=== PATIENT | male | born 1950 | race Caucasian/White ===

== ENCOUNTER 2017-06-21 19:20 | Emergency (ER) | payer BC, OTHER ==
[2017-06-21 19:30] VITALS: BP 155/93; PULSE 94; TEMP 98.1; BMI 30.1
[2017-06-21] MEDS ORDERED: DIPHTH,PERTUSS(ACELL),TET 0.5 ML DISP.SYRIN IM ONE (19:54)
--- NOTE | 2017-06-21 19:54 | PDOC ---
History of Present Illness - General History Source: Patient Exam Limitations: No Limitations - History of Present Illness Initial Comments: 06/21/17 21:05 Patient is a 66 year old male with a significant past medical history of HTN who presents to the ED s/p right first digit laceration that occurred at 2.5 hours ago. Patient reports grabbing glass from shelf today when the glass fell and cut his finger while falling to the floor. Patient reports he does not remember when his last tetanus shot was received. He reports taken baby aspirin on a daily bases. Patient reports he is right handed. Denies fever, chills. Denies chest pain, SOB. Denies nausea, vomiting. Denies any loss of consciousness, headache. Denies any other symptoms. Allergies: None Social history: No smoking. No alcohol. No illicit drugs. Surgical history: None PMD: None <Antonio Canas - Last Filed: 06/21/17 21:05> <Jessenia Zheng - Last Filed: 06/22/17 05:14> - General Chief Complaint: Injury Stated Complaint: RT THUMB LACERATION Time Seen by Provider: 06/21/17 19:33 Past History <Antonio Canas - Last Filed: 06/21/17 21:05> - Past Medical History HTN: Yes - Surgical History Cardiac Surgery: Yes ([facility]) - Suicide/Smoking/Psychosocial Hx Smoking History: Never smoked Hx Alcohol Use: (occasional) <Jessenia Zheng - Last Filed: 06/22/17 05:14> - Past Medical History Allergies/Adverse Reactions: Allergies Allergy/AdvReac Type Severity Reaction Status Date / Time No Known Allergies Allergy Verified 06/21/17 19:24 Home Medications: Ambulatory Orders Blood Pressure Pill 1 tab PO DAILY 06/21/17 Review of Systems - Review of Systems Able to Perform ROS?: Yes Comments:: 06/21/17 21:05 GENERAL/CONSTITUTIONAL: No fever or chills. No weakness. HEAD, EYES, EARS, NOSE AND THROAT: No change in vision. No ear pain or discharge. No sore throat. GASTROINTESTINAL: No nausea, vomiting, diarrhea or constipation. GENITOURINARY: No dysuria, frequency, or change in urination. CARDIOVASCULAR: No chest pain or shortness of breath. RESPIRATORY: No cough, wheezing, or hemoptysis. MUSCULOSKELETAL: + Right thumb laceration No joint or muscle swelling or pain. No neck or back pain. SKIN: No rash NEUROLOGIC: No headache, vertigo, loss of consciousness, or change in strength/ sensation. ENDOCRINE: No increased thirst. No abnormal weight change. HEMATOLOGIC/LYMPHATIC: No anemia, easy bleeding, or history of blood clots. ALLERGIC/IMMUNOLOGIC: No hives or skin allergy. All Other Systems: Reviewed and Negative <Antonio Canas - Last Filed: 06/21/17 21:05> *Physical Exam - Vital Signs Last Vital Signs Temp Pulse Resp BP Pulse Ox 98.1 F 94 H 18 155/93 98 06/21/17 19:20 06/21/17 19:20 06/21/17 19:20 06/21/17 19:20 06/21/17 19:20 - Physical Exam Comments: 06/21/17 21:05 GENERAL: Awake, alert, and fully oriented, in no acute distress HEAD: No signs of trauma EYES: PERRLA, EOMI, sclera anicteric, conjunctiva clear ENT: Auricles normal inspection, hearing grossly normal, nares patent, oropharynx clear without exudates. Moist mucosa NECK: Normal ROM, supple, no lymphadenopathy, JVD, or masses LUNGS: Breath sounds equal, clear to auscultation bilaterally. No wheezes, and no crackles HEART: Regular rate and rhythm, normal S1 and S2, no murmurs, rubs or gallops ABDOMEN: Soft, nontender, normoactive bowel sounds. No guarding, no rebound. No masses EXTREMITIES: +1.5 cm full thickness linear laceration of the right thumb palmar aspect of the IP joint. Lumber Chain Offbearer strength normal. Neurovascular intact. Right handed. Normal range of motion, no edema. No clubbing or cyanosis. No cords, erythema, or tenderness NEUROLOGICAL: Cranial nerves II through XII grossly intact. Normal speech, normal gait SKIN: Warm, Dry, normal turgor, no rashes or lesions noted. <Antonio Canas - Last Filed: 06/21/17 21:05> - Vital Signs Last Vital Signs Temp Pulse Resp BP Pulse Ox 98.1 F 94 H 18 155/93 98 06/21/17 19:20 06/21/17 19:20 06/21/17 19:20 06/21/17 19:20 06/21/17 19:20 <Jessenia Zheng - Last Filed: 06/22/17 05:14> Procedures - Laceration/Wound Repair Right 1st digit Wound Length: to 2.5 cm Wound Explored: clean Wound's Depth, Shape: linear Irrigated w/ Saline: Yes Betadine Prep: No (Hibiclens/ethanol) Anesthesia: 1% Lidocaine Amount of Anesthetic (ccs): 2 Wound Repaired With: Sutures Suture Size/Type: 5:0, nylon Number of Sutures: 3 Layer Closure: No Sterile Dressing Applied: Yes Splint Applied: No Progress: Wound cleansed with Hibiclens/ethanol and sterilely draped. 2 mL of 1% lidocaine infiltrated into the wound for local anesthesia. Wound irrigated with 40 mL of sterile normal saline. No evidence of tendon or vascular injury. No evidence of foreign body Wound edges closely apposed and 3 interrupted sutures of 5-0 nylon used for wound closure. Bacitracin applied to the wound. Patient tolerated procedure well. <Jessenia Zheng - Last Filed: 06/22/17 05:14> ED Treatment Course - Medications Given in the ED: ED Medications Discontinued Medications Generic Name Dose Route Start Last Admin Trade Name Freq PRN Reason Stop Dose Admin Diphtheria/Tetanus/Acell Pertussis 0.5 ml 06/21/17 19:54 06/21/17 20:03 Boostrix - IM 06/21/17 19:55 0.5 ml .ONCE ONE Administration <Antonio Canas - Last Filed: 06/21/17 21:05> *DC/Admit/Observation/Transfer - Attestations Scribe Attestion: 06/21/17 21:06 Documentation prepared by Antonio Canas, acting as biomedical engineering technician for Jessenia Zheng MD/DO. <Antonio Canas - Last Filed: 06/21/17 21:05> <Jessenia Zheng - Last Filed: 06/22/17 05:14> Diagnosis at time of Disposition: Laceration of right thumb Qualifiers: Encounter type: initial encounter Damage to nail status: without damage Foreign body presence: without foreign body Qualified Code(s): S61.011A - Laceration without foreign body of right thumb without damage to nail, initial encounter - Discharge Dispostion Disposition: HOME Condition at time of disposition: Stable - Patient Instructions Printed Discharge Instructions: How to Care for a Laceration After Repair Additional Instructions: Keep original dressing in place, as dry as possible, for 2 days Keep right hand elevated overnight tonight After original dressing removed, can use Band-Aid during day/open at night Return or see your doctor if area becomes more red/painful/swollen Have sutures removed in one week
== END 2017-06-21 21:25 | disposition home or self-care (01) ==
LOC: FER 19:20
PROC: 0HQFXZZ Repair Right Hand Skin, External Approach (ICD-10-PCS; principal; 2017-06-21)
PROC: 3E0234Z Introduction of Serum, Toxoid and Vaccine into Muscle, Percutaneous Approach (ICD-10-PCS; 2017-06-21)
DX: S61.011A Laceration without foreign body of right thumb without damage to nail, initial encounter (principal); W25.XXXA Contact with sharp glass, initial encounter; Y93.89 Activity, other specified; Y92.9 Unspecified place or not applicable; I10 Essential (primary) hypertension; Z95.1 Presence of aortocoronary bypass graft
CPT/HCPCS: 90715; 99283-25

== ENCOUNTER 2021-06-10 14:49 | Inpatient (IN) | payer OTHER, BC ==
[2021-06-10] MEDS ORDERED: SODIUM CHLORIDE 0.9% 500 ML INFUS.BAG IV ONE (16:33)
[2021-06-10 17:38] LABS: BASO % 1.2 % (0-2.0); EOS % 1.4 % (0-4.5); HEMOGLOBIN 10.3 GM/dL (11.7-16.9); LYMPH % 9.1 % (8-40); MCHC 33.3 g/dl (32.0-35.9); MEAN CELL VOLUME 87.3 fl (80-96); MEAN PLT VOLUME 7.8 fl (7.5-11.1); MONO % 10.1 % (3.8-10.2); NEUT % 78.2 % (42.8-82.8); PLATELET COUNT 179 10^3/uL (134-434); RBC 3.55 M/mm3 (4.00-5.60); RDW 15.2 % (11.9-15.9); WHITE BLOOD COUNT 6.5 K/mm3 (4.0-10.0)
[2021-06-10 17:44] LABS: INR 1.48 (0.83-1.09); PROTHROMBIN TIME (PATIENT) 17.7 SEC (9.7-13.0)
[2021-06-10 18:03] LABS: CHLORIDE 108 mmol/L (98-107); SODIUM 138 mmol/L (136-145)
[2021-06-10 18:05] LABS: CALCIUM 8.3 mg/dL (8.5-10.1)
[2021-06-10 18:06] LABS: ALBUMIN 3.4 g/dl (3.4-5.0); ANION GAP 11 MMOL/L (8-16); BLOOD UREA NITROGEN 33.4 mg/dL (7-18); CO2 19 mmol/L (21-32); GLUCOSE,RANDOM 149 mg/dL (74-106)
[2021-06-10 18:09] LABS: CREATININE 1.8 mg/dL (0.55-1.3); SGOT/AST 32 U/L (15-37); SGPT/ALT 41 U/L (13-61)
[2021-06-10] MEDS ORDERED: CEFTRIAXONE 1,000 MG in DEXTROSE 5%-WATER - 50 ML IVPB ONE (18:10)
[2021-06-10 18:11] LABS: BILIRUBIN,TOTAL 0.9 mg/dL (0.2-1); TOT PROT 6.5 g/dl (6.4-8.2)
[2021-06-10 18:12] LABS: ALK PHOS 219 U/L (45-117)
[2021-06-10] MEDS ORDERED: CEFTRIAXONE 1 GM/50 ML BAG ONE (18:22)
[2021-06-10] MEDS ORDERED: DIPHTH,PERTUSS(ACELL),TET 0.5 ML DISP.SYRIN IM ONE ×2 (18:42→19:33)
[2021-06-10] MEDS ORDERED: FUROSEMIDE 40 MG/4 ML INJECTABLE VIAL IVPUSH ONE (23:32)
[2021-06-10] MEDS ORDERED: FUROSEMIDE 40 MG/4 ML INJECTABLE VIAL ONE (23:54)
[2021-06-11 03:48] VITALS: BMI 37.0
[2021-06-11] MEDS: INSULIN SLIDING SCALE (NOVOLOG) 1 VIAL SQ SCH ×4 (06:21→21:26)
[2021-06-11 07:10] LABS: EOS % 1.5 % (0-4.5); HEMATOCRIT 29.5 % (35.4-49); HEMOGLOBIN 10.1 GM/dL (11.7-16.9); LYMPH % 16.5 % (8-40); MCHC 34.1 g/dl (32.0-35.9); MEAN CELL VOLUME 87.9 fl (80-96); MEAN PLT VOLUME 8.4 fl (7.5-11.1); MONO % 13.4 % (3.8-10.2); NEUT % 67.6 % (42.8-82.8); PLATELET COUNT 177 10^3/uL (134-434); RBC 3.35 M/mm3 (4.00-5.60); WHITE BLOOD COUNT 5.4 K/mm3 (4.0-10.0)
[2021-06-11 07:33] LABS: CHLORIDE 109 mmol/L (98-107); SODIUM 140 mmol/L (136-145)
[2021-06-11 07:38] LABS: ALBUMIN 3.3 g/dl (3.4-5.0); ANION GAP 6 MMOL/L (8-16); BLOOD UREA NITROGEN 34.8 mg/dL (7-18); CALCIUM 8.4 mg/dL (8.5-10.1); CO2 25 mmol/L (21-32); GLUCOSE,RANDOM 130 mg/dL (74-106)
[2021-06-11 07:39] LABS: MAGNESIUM 1.9 mg/dL (1.8-2.4)
[2021-06-11 07:41] LABS: CREATININE 1.8 mg/dL (0.55-1.3); PHOSPHOROUS 4.9 mg/dL (2.5-4.9); SGOT/AST 26 U/L (15-37); SGPT/ALT 36 U/L (13-61)
[2021-06-11 07:43] LABS: BILIRUBIN,TOTAL 0.7 mg/dL (0.2-1); TOT PROT 6.4 g/dl (6.4-8.2)
[2021-06-11 07:44] LABS: ALK PHOS 209 U/L (45-117); IRON SERUM 27 ug/dL (50-175)
[2021-06-11 07:45] LABS: TOTAL IRON BINDING CAPACITY 258 ug/dL (250-450)
[2021-06-11] MEDS ORDERED: TAMSULOSIN HCL 0.4 MG CAP PO SCH (08:30)
[2021-06-11] MEDS: APIXABAN 5 MG TABLET PO SCH ×2 (09:25→21:23)
[2021-06-11] MEDS: LOSARTAN POTASSIUM 50 MG TABLET PO SCH ×2 (09:25→22:16)
[2021-06-11] MEDS: SPIRONOLACTONE 25 MG TABLET PO SCH (09:25)
[2021-06-11] MEDS ORDERED: BENZOCAINE/MENTH/CETYLPYRD CL 1 EACH LOZENGE MM PRN (17:02)
[2021-06-11] MEDS: SILVER SULFADIAZINE 1% TOP CREAM 50 GM JAR TP SCH (17:27)
[2021-06-11] MEDS: ATORVASTATIN CA 20 MG TABLET (FP) PO SCH (21:23)
[2021-06-12] MEDS: INSULIN SLIDING SCALE (NOVOLOG) 1 VIAL SQ SCH ×4 (06:16→21:29)
[2021-06-12 07:46] LABS: HEMATOCRIT 31.6 % (35.4-49); HEMOGLOBIN 10.6 GM/dL (11.7-16.9); MCH 29.8 pg (25.7-33.7); MCHC 33.6 g/dl (32.0-35.9); MEAN CELL VOLUME 88.6 fl (80-96); MEAN PLT VOLUME 8.1 fl (7.5-11.1); PLATELET COUNT 200 10^3/uL (134-434); RBC 3.56 M/mm3 (4.00-5.60); RDW 15.3 % (11.9-15.9); WHITE BLOOD COUNT 5.5 K/mm3 (4.0-10.0)
[2021-06-12 08:07] LABS: CALCIUM 8.8 mg/dL (8.5-10.1)
[2021-06-12 08:11] LABS: CREATININE 1.7 mg/dL (0.55-1.3)
[2021-06-12 08:14] LABS: CHOLESTEROL 129 mg/dL (50-200)
[2021-06-12 08:15] LABS: TRIGLYCERIDES 95 mg/dL (0-150)
[2021-06-12 08:16] LABS: LDL CHOLESTEROL (ONLY SJRH) 64 mg/dL (5-100)
[2021-06-12 08:17] LABS: HDL CHOLESTEROL 46 mg/dL (40-60)
[2021-06-12] MEDS: SILVER SULFADIAZINE 1% TOP CREAM 50 GM JAR TP SCH (09:36)
[2021-06-12] MEDS: APIXABAN 5 MG TABLET PO SCH ×2 (09:36→21:29)
[2021-06-12] MEDS: SPIRONOLACTONE 25 MG TABLET PO SCH (09:36)
[2021-06-12] MEDS: LOSARTAN POTASSIUM 50 MG TABLET PO SCH (09:36)
[2021-06-12] MEDS: FUROSEMIDE 40 MG TABLET (FP) PO SCH (11:21)
[2021-06-12] MEDS: amLODIPine BESYLATE 10 MG TABLET (FP) PO SCH (11:21)
[2021-06-12 12:01] LABS: URINE APPEARANCE CLEAR; URINE BILIRUBIN NEGATIVE (NEGATIVE); URINE COLOR YELLOW; URINE GLUCOSE (UA) TRACE (NEGATIVE); URINE KETONE NEGATIVE (NEGATIVE); URINE LEUK ESTERASE NEGATIVE (NEGATIVE); URINE NITRITE NEGATIVE (NEGATIVE); URINE PROTEIN NEGATIVE (NEGATIVE); URINE UROBILINOGEN 0.2 mg/dL (0.2-1.0)
[2021-06-12] MEDS: ASPIRIN 81 MG CHEWABLE TABLETS PO SCH (15:38)
[2021-06-12] MEDS: ATORVASTATIN CA 20 MG TABLET (FP) PO SCH (21:29)
[2021-06-13] MEDS: INSULIN SLIDING SCALE (NOVOLOG) 1 VIAL SQ SCH ×4 (06:35→22:03)
[2021-06-13 07:17] LABS: HEMOGLOBIN 10.2 GM/dL (11.7-16.9); MCH 29.6 pg (25.7-33.7); MEAN CELL VOLUME 86.8 fl (80-96); MEAN PLT VOLUME 7.9 fl (7.5-11.1); PLATELET COUNT 191 10^3/uL (134-434); RBC 3.46 M/mm3 (4.00-5.60); RDW 15.2 % (11.9-15.9); WHITE BLOOD COUNT 5.9 K/mm3 (4.0-10.0)
[2021-06-13 07:25] LABS: CALCIUM 8.7 mg/dL (8.5-10.1)
[2021-06-13 07:26] LABS: BLOOD UREA NITROGEN 40.2 mg/dL (7-18)
[2021-06-13 07:29] LABS: CREATININE 1.5 mg/dL (0.55-1.3)
[2021-06-13] MEDS: LOSARTAN POTASSIUM 50 MG TABLET PO SCH (09:52)
[2021-06-13] MEDS: APIXABAN 5 MG TABLET PO SCH ×2 (09:52→22:03)
[2021-06-13] MEDS: amLODIPine BESYLATE 10 MG TABLET (FP) PO SCH (09:52)
[2021-06-13] MEDS: ASPIRIN 81 MG CHEWABLE TABLETS PO SCH (09:52)
[2021-06-13] MEDS: SPIRONOLACTONE 25 MG TABLET PO SCH (09:53)
[2021-06-13] MEDS: FUROSEMIDE 40 MG TABLET (FP) PO SCH (09:53)
[2021-06-13] MEDS: SILVER SULFADIAZINE 1% TOP CREAM 50 GM JAR TP SCH (12:11)
[2021-06-13] MEDS ORDERED: REGADENOSON 0.4 MG/5 ML PRE-FILLED SYRINGE IVPUSH ONE ×2 (13:15→13:30)
[2021-06-13] MEDS: ATORVASTATIN CA 20 MG TABLET (FP) PO SCH (22:03)
[2021-06-14] MEDS: INSULIN SLIDING SCALE (NOVOLOG) 1 VIAL SQ SCH ×4 (06:12→21:50)
[2021-06-14 08:00] LABS: HEMATOCRIT 31.2 % (35.4-49); HEMOGLOBIN 10.5 GM/dL (11.7-16.9); MCH 29.4 pg (25.7-33.7); MCHC 33.7 g/dl (32.0-35.9); MEAN CELL VOLUME 87.3 fl (80-96); MEAN PLT VOLUME 8.1 fl (7.5-11.1); PLATELET COUNT 214 10^3/uL (134-434); RBC 3.57 M/mm3 (4.00-5.60); WHITE BLOOD COUNT 5.7 K/mm3 (4.0-10.0)
[2021-06-14 08:15] LABS: BLOOD UREA NITROGEN 40.2 mg/dL (7-18)
[2021-06-14 08:16] LABS: CALCIUM 8.7 mg/dL (8.5-10.1)
[2021-06-14 08:18] LABS: CREATININE 1.4 mg/dL (0.55-1.3)
[2021-06-14] MEDS: ASPIRIN 81 MG CHEWABLE TABLETS PO SCH (09:48)
[2021-06-14] MEDS: amLODIPine BESYLATE 10 MG TABLET (FP) PO SCH (09:48)
[2021-06-14] MEDS: SPIRONOLACTONE 25 MG TABLET PO SCH (09:48)
[2021-06-14] MEDS: FUROSEMIDE 40 MG TABLET (FP) PO SCH (09:48)
[2021-06-14] MEDS: APIXABAN 5 MG TABLET PO SCH ×2 (09:48→21:50)
[2021-06-14] MEDS: LOSARTAN POTASSIUM 50 MG TABLET PO SCH (09:48)
[2021-06-14] MEDS: SILVER SULFADIAZINE 1% TOP CREAM 50 GM JAR TP SCH (11:41)
[2021-06-14] MEDS: ATORVASTATIN CA 20 MG TABLET (FP) PO SCH (21:50)
[2021-06-15] MEDS: INSULIN SLIDING SCALE (NOVOLOG) 1 VIAL SQ SCH ×4 (06:05→21:22)
[2021-06-15 07:48] LABS: BASO % 1.4 % (0-2.0); EOS % 3.3 % (0-4.5); HEMATOCRIT 29.7 % (35.4-49); HEMOGLOBIN 10.1 GM/dL (11.7-16.9); LYMPH % 19.2 % (8-40); MCH 29.8 pg (25.7-33.7); MEAN CELL VOLUME 87.5 fl (80-96); MEAN PLT VOLUME 8.1 fl (7.5-11.1); MONO % 17.6 % (3.8-10.2); NEUT % 58.5 % (42.8-82.8); PLATELET COUNT 195 10^3/uL (134-434); RBC 3.39 M/mm3 (4.00-5.60); RDW 15.3 % (11.9-15.9); WHITE BLOOD COUNT 5.2 K/mm3 (4.0-10.0)
[2021-06-15 07:53] LABS: CALCIUM 8.7 mg/dL (8.5-10.1)
[2021-06-15 07:54] LABS: ALBUMIN 3.2 g/dl (3.4-5.0); BLOOD UREA NITROGEN 39.4 mg/dL (7-18); MAGNESIUM 1.7 mg/dL (1.8-2.4)
[2021-06-15 07:56] LABS: CREATININE 1.4 mg/dL (0.55-1.3); PHOSPHOROUS 4.4 mg/dL (2.5-4.9)
[2021-06-15 07:57] LABS: BILIRUBIN,TOTAL 0.8 mg/dL (0.2-1)
[2021-06-15 07:58] LABS: TOT PROT 6.1 g/dl (6.4-8.2)
[2021-06-15] MEDS: ASPIRIN 81 MG CHEWABLE TABLETS PO SCH (09:34)
[2021-06-15] MEDS: FUROSEMIDE 40 MG TABLET (FP) PO SCH (09:34)
[2021-06-15] MEDS: SPIRONOLACTONE 25 MG TABLET PO SCH (09:34)
[2021-06-15] MEDS: amLODIPine BESYLATE 10 MG TABLET (FP) PO SCH (09:34)
[2021-06-15] MEDS: APIXABAN 5 MG TABLET PO SCH ×2 (09:34→21:22)
[2021-06-15] MEDS: SACUBITRIL/VALSARTAN 49 MG-51 MG TABLET PO SCH ×2 (09:34→21:22)
[2021-06-15] MEDS: SILVER SULFADIAZINE 1% TOP CREAM 50 GM JAR TP SCH (11:03)
[2021-06-15] MEDS ORDERED: PT OWN MED DRAWER 7, Y5N ONE (21:10)
[2021-06-15] MEDS: ATORVASTATIN CA 20 MG TABLET (FP) PO SCH (21:22)
[2021-06-16 08:24] LABS: BASO % 1.5 % (0-2.0); HEMATOCRIT 33.1 % (35.4-49); LYMPH % 20.9 % (8-40); MCH 29.1 pg (25.7-33.7); MCHC 33.1 g/dl (32.0-35.9); MEAN CELL VOLUME 87.9 fl (80-96); MEAN PLT VOLUME 8.1 fl (7.5-11.1); MONO % 15.7 % (3.8-10.2); NEUT % 58.9 % (42.8-82.8); PLATELET COUNT 235 10^3/uL (134-434); RBC 3.76 M/mm3 (4.00-5.60); RDW 15.2 % (11.9-15.9); WHITE BLOOD COUNT 5.7 K/mm3 (4.0-10.0)
[2021-06-16 08:29] LABS: ALBUMIN 3.2 g/dl (3.4-5.0); BLOOD UREA NITROGEN 32.7 mg/dL (7-18); MAGNESIUM 1.7 mg/dL (1.8-2.4)
[2021-06-16 08:32] LABS: CREATININE 1.2 mg/dL (0.55-1.3); PHOSPHOROUS 3.7 mg/dL (2.5-4.9)
[2021-06-16 08:33] LABS: BILIRUBIN,TOTAL 0.8 mg/dL (0.2-1); TOT PROT 6.4 g/dl (6.4-8.2)
[2021-06-16] MEDS ORDERED: PT OWN MED DRAWER 7, Y5N ONE (10:04)
[2021-06-16] MEDS: INSULIN SLIDING SCALE (NOVOLOG) 1 VIAL SQ SCH ×2 (10:06→11:53)
[2021-06-16] MEDS: FUROSEMIDE 40 MG TABLET (FP) PO SCH (10:10)
[2021-06-16] MEDS: ASPIRIN 81 MG CHEWABLE TABLETS PO SCH (10:10)
[2021-06-16] MEDS: SPIRONOLACTONE 25 MG TABLET PO SCH (10:10)
[2021-06-16] MEDS: SACUBITRIL/VALSARTAN 49 MG-51 MG TABLET PO SCH (10:10)
[2021-06-16] MEDS: amLODIPine BESYLATE 10 MG TABLET (FP) PO SCH (10:10)
[2021-06-16] MEDS: SILVER SULFADIAZINE 1% TOP CREAM 50 GM JAR TP SCH (10:11)
[2021-06-16] MEDS: APIXABAN 5 MG TABLET PO SCH (11:54)
[2021-06-16] MEDS ORDERED: MAGNESIUM OXIDE 400 MG TABLET (FP) PO ONE ×2 (13:46→14:34)
[2021-06-16 15:18] VITALS: BP 107/59; PULSE 57; TEMP 98.2
== END 2021-06-16 17:33 | disposition home or self-care (01) | DRG 291 ==
LOC: JER 14:49 → JERBED 16:40 → J4S 06-11 02:45
PROVIDERS: ADMIT Internal Medicine; ATTEND Internal Medicine
DX: I13.0 Hypertensive heart and chronic kidney disease with heart failure and stage 1 through stage 4 chronic kidney disease, or unspecified chronic kidney disease (principal); I50.43 Acute on chronic combined systolic (congestive) and diastolic (congestive) heart failure; N17.9 Acute kidney failure, unspecified; I42.9 Cardiomyopathy, unspecified; Z79.01 Long term (current) use of anticoagulants; E78.5 Hyperlipidemia, unspecified; D63.8 Anemia in other chronic diseases classified elsewhere; I48.91 Unspecified atrial fibrillation; I25.10 Atherosclerotic heart disease of native coronary artery without angina pectoris; N18.9 Chronic kidney disease, unspecified; W19.XXXA Unspecified fall, initial encounter; S00.03XA Contusion of scalp, initial encounter; S61.411A Laceration without foreign body of right hand, initial encounter; R00.1 Bradycardia, unspecified; Z95.1 Presence of aortocoronary bypass graft; Y93.9 Activity, unspecified; Y92.89 Other specified places as the place of occurrence of the external cause; Y99.9 Unspecified external cause status; N40.0 Benign prostatic hyperplasia without lower urinary tract symptoms; E66.9 Obesity, unspecified; Z68.36 Body mass index [BMI] 36.0-36.9, adult
CPT/HCPCS: 36415; 70450-TC; 70486-TC; 71045-TC-FY; 72125-TC; 76775-TC; 78452-TC; 80048; 80053; 80061; 81003; 82272; 82550; 82553; 82570; 82728; 82962; 83036; 83540; 83550; 83735; 83880; 84100; 84156; 84443; 84466; 84484; 85025; 85027; 85610; 90715; 93005; 93010; 93017; 93225; 93226; 93306-TC; 93880-TC; 97116-GP; 97161-GP; 99285-25; A9502; C9803; G0463-25; J2785; U0003; U0005